=== PATIENT | female | born 1980 | race Caucasian/White ===

== ENCOUNTER 2023-02-11 22:53 | Emergency (ER) | payer OTHER, SELFPAY ==
[2023-02-11 22:53] VITALS: BP 120/88; PULSE 62; RESP 16; TEMP 36.8; O2SAT 98; BMI 38.9
[2023-02-11 23:02] VITALS: BP 120/88; PULSE 60; O2SAT 95
--- NOTE | 2023-02-11 23:04 | PC.NURSE ---
Dr. Burks at [facility]
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
--- NOTE | 2023-02-11 23:10 | PC.NURSE ---
Pt gone to RAD via stretcher
--- NOTE | 2023-02-11 23:25 | PC.NURSE ---
Pt back from RAD
[2023-02-11 23:30] VITALS: BP 137/86; PULSE 68; O2SAT 98
--- NOTE | 2023-02-11 23:53 | PC.NURSE ---
LUCY called for urgent findings from Chest CT, transferred call to Dr. Burks
--- NOTE | 2023-02-12 00:05 | PC.NURSE ---
Dr. Burks speaking with Dr. Jessica at [facility]
--- NOTE | 2023-02-12 00:07 | PC.NURSE ---
Called [employer] to prepare a disc and power share images to [facility]
--- NOTE | 2023-02-12 00:12 | PC.NURSE ---
Pt accepted to [facility] by Dr. Jessica
--- NOTE | 2023-02-12 00:18 | PC.NURSE ---
notified [facility] that pt is ready for transport to er
--- NOTE | 2023-02-12 00:22 | PC.NURSE ---
pt's sister has arrived and brought her back to the room, gave update on pt and transfer information.
[2023-02-12 00:31] VITALS: BP 135/81; PULSE 79; O2SAT 99
[2023-02-12 00:38] VITALS: BP 135/78; PULSE 62; RESP 20; TEMP 36.7; O2SAT 98
--- NOTE | 2023-02-12 00:43 | PC.NURSE ---
[facility] here for pt transport to [facility]
== END 2023-02-12 00:48 | disposition short-term general hospital (02) ==
PROVIDERS: Emergency Provider Family Medicine; PCP Family Medicine
DX: S22.089A Unspecified fracture of T11-T12 vertebra, initial encounter for closed fracture (principal); V48.0XXA Car driver injured in noncollision transport accident in nontraffic accident, initial encounter; F17.200 Nicotine dependence, unspecified, uncomplicated
CPT/HCPCS: 70450; 71250; 72125; 74176; 96374; 99291